=== PATIENT | male | born 1945 | race Caucasian/White ===

== ENCOUNTER 2023-03-16 09:00 | Day surgery (SDC) | payer BC ==
--- NOTE | 2023-03-13 10:24 | RAD REPORT ---
EXAM DESCRIPTION: RAD - Chest Pa And Lat (2 Views) - 03/13/2023 10:16 am CLINICAL HISTORY: Pre op pending heart catheterization, hypertension COMPARISON: Chest Pa And Lat (2 Views) dated 11/24/2019; Chest Single View dated 04/21/2016 FINDINGS: Lines: None. Lungs: No evidence of edema or pneumonia. Pleural: No significant pleural effusions or pneumothorax. Cardiac: The heart size is within normal limits. Mediastinum: Within normal limits. Bones: No acute fractures. Other: None IMPRESSION: No acute cardiopulmonary disease.
[2023-03-13 10:56] LABS: Absolute Lymphocytes (CBC) 0.9 K/uL (0.7-4.9); Hematocrit 46.4 % (39.6-49.0); Lymphocytes % 13.9 % (15.3-44.8); MCV 97.8 fL (80-100); MPV 8.7 fL (7.6-11.3); Platelets 258 thou/uL (152-406); RBC Red Blood Cell Count 4.75 M/uL (4.33-5.43)
[2023-03-13 11:03] LABS: Protime INR 1.14
[2023-03-13 11:10] LABS: Potassium 4.1 mEq/L (3.5-5.1)
--- NOTE | 2023-03-15 15:33 | EKG ---
Test Date: 2023-03-13 Test Time: 09:55:46 Maintenance Advisor: EVAN MEASUREMENT RESULTS: Intervals: Rate: 49 LA: 194 QRSD: 144 QT: 444 QTc: 401 [place]: P: 67 LA: 194 QRS: -3 T: 60 INTERPRETIVE STATEMENTS: Marked sinus bradycardia Nonspecific intraventricular block Cannot rule out Septal infarct, age undetermined Abnormal ECG Compared to ECG 06/05/2016 16:15:35 Myocardial infarct finding now present Electronically Signed On 03-15-23 15:30:52 CDT by Barber Hale
[2023-03-16] MEDS ORDERED: NA CHLORIDE 0.9% 500 ML ONE (09:15)
[2023-03-16] MEDS ORDERED: FENTANYL CITR 100 MCG/2 ML ONE (09:34)
[2023-03-16] MEDS ORDERED: MIDAZOLAM HCL 2 MG/2 ML INJ ONE (09:35)
[2023-03-16] MEDS ORDERED: HEPARIN 5000 UNIT/ML 1 ML VIAL ONE (09:35)
[2023-03-16] MEDS ORDERED: VERAPAMIL HCL 10 MG/4 ML VIAL IV ONE (09:35)
[2023-03-16] MEDS ORDERED: NITROGLYCERIN 100 MCG/ML SYR (for cath lab use only) IV ONE (09:36)
[2023-03-16] MEDS ORDERED: HEPARIN 10,000 UNIT/10 ML VIAL IV ONE (09:36)
[2023-03-16] MEDS ORDERED: ATROPINE SULF 1 MG/10 ML SYR IV ONE (09:48)
[2023-03-16] MEDS ORDERED: HEPA 1000U/500MLS 2,000 UNIT/1,000 ML BAG IV ONE (10:09)
[2023-03-16] MEDS ORDERED: FAMOTIDINE 20 MG TAB PO ONE (11:05)
[2023-03-16] MEDS ORDERED: CLOPIDOGREL 75 MG TABLET ONE (11:29)
[2023-03-16] MEDS ORDERED: ASPIRIN 325 MG TAB ONE (11:29)
[2023-03-16] MEDS ORDERED: HEPA 1000U/500MLS 1,000 UNIT/500 ML BAG IV ONE (12:10)
[2023-03-16 12:46] VITALS: TEMP 97
--- NOTE | 2023-03-16 13:33 | OP ---
Date of Procedure: 03/16/2023 Surgeon: MOISES WEBB Procedures Performed: 1.Selective coronary angiogram. 2.Left heart catheterization. 3.PCI of severe mid LAD stenosis, used 4.0 x 20 mm Synergy drug-eluting stent. Indication: Chest pain with abnormal stress test. Access: Right radial artery 6-Panamanian closed with TR band. Complications: None. Bleeding: Less than 50 mL. Anesthesia: Total sedation time was 50 minutes, used fentanyl and Versed. Description Of Procedure: After risks, benefits, alternatives were explained, the patient agreed to procedure and signed informed consent. The patient was brought into the cardiac catheterization [facility], prepped and draped in the usual sterile fashion. Then, I accessed right radial artery using pediatric micropuncture kit, placed 6-Panamanian Slender sheath and took 5-Panamanian Sylvia 4.0 catheter into the aortic root, engaged the RCA, and I could not engage the left main, so I exchanged for 6-[place]amanian JR4 catheter, engaged the left main, took standard views. Then, I gave systemic heparin to assure AC T level above 250 throughout the procedure, gave 600 mg of Plavix and 325 mg of aspirin and then took the EBU3.5 guide into the aortic root, engaged the left main, took Run-Through wire into the left ma in and LAD, placed it distally, and the lesion was pre-dilated using a 4.0 x 12 balloon, expanded tony y well and then I placed a 4.0 x 20 mm Synergy drug-eluting stent across the area of stenosis with ex cellent results and then removed the wire and final angiogram was satisfactory. I removed the cathet er and sheath, placed TR band with good hemostasis. Findings: 1.Left main; very large and normal. 2.LAD; proximal 40%, mid long segment 80% stenosis, status post successful PCI as above. Diagonal O M branch has proximal 50% stenosis and then the LAD in the mid to distal, there is a focal 40% stenos is and the rest of the LAD is normal. 3.Left circumflex; large artery. Proximal segment, there is 40% and in the mid segment, there is an other 40% stenosis right before the OM branch takeoff and then OM branch has mid 50% stenosis. 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 5.LVEDP is 12 mmHg, slightly elevated. Conclusion: 1.Severe mid LAD stenosis, status post successful PCI as above. 2.Moderate coronary artery disease elsewhere. Plan: 1.Aspirin, Plavix, high-dose statin. 2.Stress test in 6 months. SR/MODL Voice ID: [id number] Report ID: [id number]
[2023-03-16 14:08] VITALS: O2SAT 97
[2023-03-16 15:55] VITALS: BP 159/79
== END 2023-03-16 15:00 | disposition home or self-care (01) ==
LOC: CCL 09:00
PROVIDERS: ATTEND Internal Medicine
PROC: 027034Z Dilation of Coronary Artery, One Artery with Drug-eluting Intraluminal Device, Percutaneous Approach (ICD-10-PCS; principal; 2023-03-16)
PROC: 4A023N7 Measurement of Cardiac Sampling and Pressure, Left Heart, Percutaneous Approach (ICD-10-PCS; 2023-03-16)
PROC: B2111ZZ Fluoroscopy of Multiple Coronary Arteries using Low Osmolar Contrast (ICD-10-PCS; 2023-03-16)
DX: I25.10 Atherosclerotic heart disease of native coronary artery without angina pectoris (principal); I25.41 Coronary artery aneurysm; I10 Essential (primary) hypertension; I48.91 Unspecified atrial fibrillation; Z87.891 Personal history of nicotine dependence
CPT/HCPCS: 93458; C9600; 36415; 71046; 76937; 80048; 85025; 85347; 85610; 85730; 93005; C1725; C1893; J0461; J1644; J2250; J3010; J7040; Q9967